=== PATIENT | male | born 1945 | race Caucasian/White ===

== ENCOUNTER → 2019-01-30 | Outpatient (CLI) | payer MEDICARE, SELFPAY | PROVIDERS: PCP Family Medicine; Visit Provider Urology | DX: Z01.812 Encounter for preprocedural laboratory examination (principal); I10 Essential (primary) hypertension | CPT/HCPCS: 36415; 80053; 85025; 85610; 85730; 86850; 86900; 86901; 87077; 87086; 87088; 87186 ==

== ENCOUNTER 2020-01-08 13:01 | Outpatient (CLI) | payer MEDICARE, SELFPAY ==
--- NOTE | ~2020-01-08 | XR_ITS ---
XR chest 2V DATE: 01/08/2020 13:24 INDICATION: Transitional cell carcinoma of left kidney TECHNIQUE: PA and lateral views COMPARISON: None FINDINGS: Cardiomegaly. Aortic calcification and minimal unfolding. No hilar or mediastinal enlargeme nt. No pulmonary infiltrate or consolidation, pleural effusion or pulmonary vascular congestion or pneumo thorax. Diffuse idiopathic skeletal hyperostosis of the thoracic spine. IMPRESSION: Cardiomegaly Aortic atherosclerosis Diffuse idiopathic skeletal hyperostosis of the thoracic spine Reviewed, dictated and finalized at location [facility].
--- NOTE | ~2020-01-08 | CT_ITS ---
EXAMINATION: CT abdomen pelvis wo/w con DATE: 01/08/2020 14:58 INDICATION: Transitional cell carcinoma of left kidney TECHNIQUE: Computed tomography (CT) of the abdomen and pelvis was performed without and subsequently with 130 cc Omnipaque 350 intravenous contrast. Automated exposure control and iterative reconstructi on technique were employed. Exam dose: 3021.89 mGy-cm total exam DLP. COMPARISON: 12/16/2018 CT abdomen pelvis FINDINGS: The lung bases are clear. Extensive coronary artery calcifications. Cardiomegaly. No pericardial or pleural effusion. There are 2 dependent gallstones measuring approximate 4.6 and 5.3 mm. No gallbladder wall thickening or pericholecystic fluid or fat stranding is evident. No hepatic, splenic, pancreatic, adrenal or right renal space-occupying mass lesion is evident. Status post left nephrectomy. There is prostate enlargement. There is diffuse bladder wall thickening, measuring up to approximatel y 5 mm. There are prominent nodular soft tissue projections into the base and lower right lateral asp ect of the urinary bladder, suspicious for prostate and/or bladder malignancy. Cystoscopic correlatio n and biopsy should be considered.. There is an approximately 2.4 x 2.8 x 4.0 cm cystic lesion at the left lateral aspect of the urinary bladder, adjacent to the external iliac vessels medially. This may be a urinary bladder diverticulum, lymphocele or low-attenuation lymphadenopathy. The distal approximately 9 cm of the left ureter ureter remain, but the wall is thickened and enhance d, raising concern for malignant involvement of the distal left ureteral remnant. There is atherosclerotic calcification of the abdominal aorta and at the origins of the celiac and rivas perior mesenteric and renal arteries. No abdominal aortic aneurysm. Normal appendix. No bowel obstruction, bowel wall thickening, pneumatosis or intraperitoneal free air . Status post left inguinal herniorrhaphy. No suspicious osteolytic or osteoblastic lesions are noted. Diffuse idiopathic skeletal hyperostosis of the thoracic and lumbar spine. Prominent degenerative change of the lumbar apophyseal joints. IMPRESSION: Cardiomegaly and coronary artery atherosclerosis Cholelithiasis Status post left nephrectomy There is thickening and enhancement of the wall of the distal left ureteral remnant, raising concern for transitional cell carcinoma Thickening of the urinary bladder wall which may be due to bladder outlet obstruction; transitional c ell carcinoma is not excluded. Cystitis is an additional consideration. Prostate enlargement Dominant nodular soft tissue densities at the base and lower right lateral urinary bladder wall, rais ing concern for prostate and/or bladder malignancy. Cystoscopy and biopsy should be considered. 2.4 x 2.8 x 4.0 cm low-attenuation lesion along the left external iliac olivia chain adjacent to the l ateral aspect of the urinary bladder; diffusion diagnosis includes urinary bladder diverticulum, lymp hocele, low-attenuation lymphadenopathy Reviewed, dictated and finalized at [facility]. Reviewed, dictated and finalized at location [facility]. IMPRESSION: Cardiomegaly and coronary artery atherosclerosis Cholelithiasis Status post left nephrectomy There is thickening and enhancement of the wall of the distal left ureteral rem nant, raising concern for transitional cell carcinoma Thickening of the urinary bladder wall which may be due to bladder outlet obstr uction; transitional cell carcinoma is not excluded. Cystitis is an additional consideration. Prostate enlargement Dominant nodular soft tissue densities at the base and lower right latera
[2020-01-08 14:14] LABS: Estimated Glomerular Filt Rate > 60
== END 2020-01-08 13:02 | disposition home or self-care (01) ==
LOC: ANHIMG 13:08
PROVIDERS: PCP Family Medicine; Visit Provider Urology
DX: C64.2 Malignant neoplasm of left kidney, except renal pelvis (principal); K80.20 Calculus of gallbladder without cholecystitis without obstruction; I51.7 Cardiomegaly; I25.10 Atherosclerotic heart disease of native coronary artery without angina pectoris; N40.0 Benign prostatic hyperplasia without lower urinary tract symptoms
CPT/HCPCS: 71046; 74178; Q9967

== ENCOUNTER 2020-06-14 12:43 | Outpatient (CLI) | payer MEDICARE, SELFPAY ==
--- NOTE | ~2020-06-14 | XR_ITS ---
EXAMINATION: XR abdomen/kub 1V EXAM DATE: 06/14/2020 13:09 INDICATION: Left kidney transitional cell cancer. TECHNIQUE: Frontal projection(s) of the abdomen for interpretation. Comparison is made to prior exami nation from 06/26/2017. FINDINGS: There is moderate amount of colonic stool and gas. No small bowel dilation, nonobstructiv e bowel gas pattern. There are no suspicious calcifications identified. There is no organomegaly suspected. Some large bridging left lateral endplate osteophytes. Patient has diffuse idiopathic ske letal hyperostosis (DISH). Lung bases unremarkable. IMPRESSION: Moderate amount of colonic stool. Reviewed, dictated and finalized at location A.
--- NOTE | ~2020-06-14 | CT_ITS ---
EXAMINATION: CT abdomen pelvis wo/w con DATE: 06/14/2020 13:25 INDICATION: Transitional carcinoma of the kidney. TECHNIQUE: Computed tomography (CT) of the abdomen and pelvis was performed without and with 100 mL O mnipaque-350 intravenous contrast. Automated exposure control and iterative reconstruction technique were employed. The dose-length product was 2180.03 mGy-cm. COMPARISON: 01/08/2020 FINDINGS: Mild bronchiectasis at the bilateral lower lobes right atrial and ventricular enlargement. Atheroscle rotic coronary artery calcifications. No pericardial or pleural effusion. A few calcified gallstones in the dependent aspect of the otherwise normal gallbladder. Liver, spleen, pancreas, right kidney an d right adrenal gland are normal. Postoperative change of prior left nephrectomy and adrenalectomy. 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 Bowels including the appendix. There is diffuse bladder wall thickening with generally smooth mucosal surfac e with the exception of at the base of the bladder overlying the enlarged prostate where it has a mor e nodular appearance. There is diffuse thickened and enhancing urothelium along the remaining mid to distal left ureter. No significant interval change in a 4.1 x 2.6 x 2.9 cm cystic lesion in the left inguinal region where there are a few surgical clips suggesting this could represent either a plug or residual lymphocele secondary to a prior left inguinal hernia repair. There appears be a thin separa ting fat plane between the lesion in the bladder cardiomegaly against a bladder diverticulum. Also ar luis manuel against diverticulum is the absence of contrast within the cystic lesion despite prominent contra st in the bladder on the prior CT study. Couple small fat-containing ventral hernias along a supra um bilical midline abdominal scar. There are bridging osteophytes at multiple levels in the lumbar and l ower thoracic spine along with partial ankylosis with bridging anterior osteophytes at the bilateral sacral iliac joints consistent with diffuse idiopathic skeletal hyperostosis (DISH). Moderate bilater al hip osteoarthritis. IMPRESSION: 1. Status post left nephrectomy. No evident residual, recurrent or metastatic disease. 2. Persistent diffuse enhancing urothelial thickening along the remaining mid to distal left ureter w hich favors inflammation related to reflux as opposed to residual transitional cell carcinoma. 3. Diffuse wall thickening of the bladder with nodular contour at the bladder outlet most likely rela bindu to the enlarged prostate but again residual transitional cell carcinoma could not be excluded. Co uld consider cystoscopy for more definitive determination. 4. Cholelithiasis. 5. Coronary artery disease with right atrial and ventricular enlargement. 6. 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 7. Unchanged 4.1 x 2.6 x 2.9 cm cystic lesion near the entrance of the left inguinal canal with there are surgical clips suggesting either a blood associated with the hernia repair or secondary lymphang ioma. Reviewed, dictated and finalized at location [facility]. IMPRESSION: 1. Status post left nephrectomy. No evident residual, recurrent or metastatic d isease. 2. Persistent diffuse enhancing urothelial thickening along the remaining mid t o distal left ureter which favors inflammation related to reflux as opposed to residual transitional cell carcinoma. 3. Diffuse wall thickening of the bladder with nodular contour at the bladder o utlet most likely related to the enlarged prostate but again residual transitio nal cell carcinoma could not be excluded. Could consider cystoscopy for more de finitive determination. 4. Cholelithiasis. 5. Coronary artery disease with right atrial and
[2020-06-14 13:18] LABS: Estimated Glomerular Filt Rate > 60
== END 2020-06-14 12:44 | disposition home or self-care (01) ==
PROVIDERS: PCP Family Medicine; Visit Provider Urology
DX: C64.2 Malignant neoplasm of left kidney, except renal pelvis (principal); K80.20 Calculus of gallbladder without cholecystitis without obstruction; I25.10 Atherosclerotic heart disease of native coronary artery without angina pectoris; I72.2 Aneurysm of renal artery
CPT/HCPCS: 74018; 74178; Q9967

== ENCOUNTER 2021-11-15 12:44 | Outpatient (CLI) | payer MEDICARE, SELFPAY ==
--- NOTE | 2021-11-15 13:09 | ECG_ITS ---
Measurements Intervals [place] Rate: 60 P: VT: 0 QRS: -11 QRSD: 123 T: 31 QT: 400 QTc: 401 Interpretive Statements ATRIAL FIBRILLATION ABNORMAL ECG Electronically Signed On 11-15-2021 14:17:28 CDT by Jero Hopper M.D.
== END 2021-11-15 12:45 | disposition home or self-care (01) ==
LOC: ANHSURGERY 13:02
PROVIDERS: PCP Family Medicine; Visit Provider Urology
DX: Z01.818 Encounter for other preprocedural examination (principal); D49.4 Neoplasm of unspecified behavior of bladder; I48.91 Unspecified atrial fibrillation; R94.31 Abnormal electrocardiogram [ECG] [EKG]
CPT/HCPCS: 87086; 93005

== ENCOUNTER 2021-11-22 01:08 | Day surgery (SDC) | payer MEDICARE, SELFPAY ==
[2021-11-10 11:21] VITALS: BMI 31.9
--- NOTE | 2021-11-10 11:33 | PC.NURSE ---
PRE-OP INSTRUCTIONS, PLEASE READ CAREFULLY Report to the Outpatient Waiting Room, entrance under the green pavilion located off [facility], at time _1000_ on date _11/22/21_. OR Time: _1200_. - You and your visitor will be asked a series of questions to screen for COVID 19 for your protection. - Only one visitor is allowed at this time. - The patient visitor is requested to leave or wait in car when not with patient. - A mask is required within the hospital. Patients may have clear liquids (water, carbonated beverages, clear teas, apple juice) until 3 hours prior to surgery (0900 AM) with a maximum of 20 ounces. - No food from midnight until time of surgery Take the following medications with a SIP of water the morning of surgery: _AMLODIPINE, METOPROLOL_ Medications to discontinue ___ELIQUIS - PER DR. ANTOINE'S INSTRUCTIONS Please no deodorant, or body powder the day of surgery. No jewelry (including any body piercings) or valuables the day of surgery, leave them at home. Please take a shower or bath the night before, or the morning of, surgery with an antibacterial soap. Wear comfortable, loose fitting clothing. - Jewelry must be removed prior to entering the operating room. Rings and piercings that are not removed may be cut off. - The hospital will not accept responsibility for valuables. - Please leave all valuables, including medications, at home the day of surgery. If you are going home after surgery, a licensed peg driver must drive you home. - NO public transportation without another adult. - We recommend that an adult stay with you for 24 hours following discharge. - We also recommend that you do not drive, make important decision, drink alcoholic beverages, or take any drugs that were not prescribed by your health care provider for at least 24 hours after your discharge time. Follow any additional instructions given to you from your surgeon. If you or anyone in your household have experienced Covid symptoms in the past week, please notify your surgeon or the nurse liaison at the phone number below for possible testing. Telephone instructions given to ___PT and asked if any additional questions and then verbalized understanding. Patient advised to call surgeon office or pre surgery nurse liaison [phone] if any additional questions.
[2021-11-22] VITALS (14 sets, daily range): BP systolic 120–160; BP diastolic 67–90; PULSE 51–100; RESP 10–20; TEMP 35.7–36.6; O2SAT 93–100
--- NOTE | 2021-11-22 12:17 | WPDHPUPDATE1 ---
History and Physical Update Update Date/Time: 11/22/21 12:17 History and Physical has been reviewed, including an updated exam of the patient. There are NO changes in the patient's condition. Risks, benefits, and alternatives have been discussed and questions answered. Patient agrees to proceed with procedure.
--- NOTE | 2021-11-22 12:18 | SUR.PREOP ---
Discussed delay with patient and his . Voiced understanding.
--- NOTE | 2021-11-22 12:34 | WPDANESEPPF ---
Anes - Initial Pre Proc Eval Procedure: Operation Date: 11/22/21 12:00 Proposed Procedures p Cystoscopy, Bladder Biopsy and Fulguration - Bonifacio Cabrera MD Date/Time: 11/22/21 12:34 Surgeon: Bonifacio Cabrera MD Pre Op Diagnosis: bladder cancer Patient Data Age: 76 Gender: M Height: 1.91 m Weight: 111 kg Last Vital Signs Temp 97.9 F 11/22/21 10:24 Pulse 73 11/22/21 10:24 Resp 16 11/22/21 10:24 BP 150/69 H 11/22/21 10:24 Pulse Ox 98 11/22/21 10:24 O2 Del Method Room Air 11/22/21 10:24 Allergies Allergy/AdvReac Type Severity Reaction Status Date / Time metformin AdvReac Mild Diarrhea Verified 11/22/21 10:14 Home Medications Medication Instructions Recorded Confirmed Type amlodipine 10 mg tablet 10 mg PO DAILY 01/30/19 11/22/21 History apixaban 5 mg tablet 5 mg PO BID 01/30/19 11/22/21 History atorvastatin 40 mg tablet 40 mg PO DAILY 01/30/19 11/22/21 History cetirizine 10 mg tablet 10 mg PO DAILY 01/30/19 11/22/21 History metoprolol tartrate 25 mg tablet 25 mg PO BID 01/30/19 11/22/21 History quinapril 40 mg tablet 40 mg PO DAILY 01/30/19 11/22/21 History Patient hx anesthesia problems: none Family hx anesthesia problems: none Results Review: All pre-operative results and documents have been reviewed as part of the pre-operative evaluation. [facility] Past Medical History Medical History Atrial fibrillation cardioversion 2011 & 2016, recurrent AFib rate controlled & anticoagulated. 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 Surgical History Surgical History S/P laparoscopic surgery 06/26/17 robotic assisted distal left ureterectomy with psoas hitch reimplantation Status post cystoscopy with ureteral stent placement TURBT Family History Family History Father Diabetes mellitus Carcinoma of colon Mother Hypertension Other Family history of cardiovascular disease Family history of primary malignant neoplasm of liver Social History Social History Smoking packs per day: 1.5 Smoking cigarettes per day: 30.0 Years smoked: 50 Smoking pack-years: 75.00 Smoking status: Former smoker Tobacco type: cigarettes Second hand tobacco smoke exposure: No Smoking end date: 04/02/72 Alcohol intake: never Substance use: never Substance use type: does not use Living arrangements: with family Gender identity (if verbalized by the patient): Male Spiritual care concerns: No Agree to blood products: No Anes - Eval Final PreProcedure Day of Procedure 11/22/21 12:34 Patient weight: obese Heart: irregular rhythm Lungs: clear to auscultation Airway: Mallampati scale class II Neurological: alert and oriented Last oral intake: >/= 8 hours ASA classification: III Emergent: no Anesthetic plan: proceed Anesthesia type and monitoring: general LMA and standard monitoring Results Review: All pre-operative results and documents have been reviewed as part of the pre-operative evaluation. Informed Consent: The patient's anesthetic plan and its attendant risks and benefits were discussed with the patient/family/POA. Questions were solicited and answers provided to the satisfaction of the patient/family/POA.
[2021-11-22] MEDS: LACTATED RINGERS 1,000 ML 30 ML IV CONT ×2 (12:42→14:02)
[2021-11-22 12:54] LABS: Glucose Point of Care 150 mg/dl (65-105)
[2021-11-22] MEDS: ceFAZolin 2 GM/D5W 50 ML 2 GM/50 ML BAG IVPB (12:55)
[2021-11-22] MEDS: LIDOCAINE HCL 2% GEL UROJET 10 ML PKG 20 ML MUCOUS MEM (13:07)
--- NOTE | 2021-11-22 13:56 | W.PM.PROC2 ---
Procedure Note - Detailed Date of Procedure 11/22/21 Pre-op Diagnosis bladder cancer Post-op Diagnosis Same Procedure Performed Cystoscopy, transurethral resection of prostate/bladder lesion, bladder biopsy with fulguration Surgeon Bonifacio Cabrera MD Anesthesia General Description of Procedure Patient is taken the operative suite correctly identified. Once anesthesia was obtained was placed in dorsal lithotomy position and prepped draped usual sterile fashion. Twenty-two Spanish scope inserted the bladder. He does have some lateral lobe hypertrophy. Upon entering the bladder there is some mild erythema along the left floor area. But also was noted that along the right bladder neck area there is almost a separate entity coming either off the bladder the prostate which is adjacent to and distal to the right ureteral orifice. At this point time was the side that we would resect this area for definitive tissue diagnosis. We exchanged the scope out for a 24 Spanish resectoscope sheath. We did resect the floor of the bladder on the left and sent that as a separate specimen. We fulgurated the base using rollerball. We then resected this abnormal protuberance on the right bladder neck area and sent that as a separate specimen. In order to achieve good hemostasis we needed to resect part of the prostate on the right. It was resected from the bladder neck to the verumontanum. We then used a rollerball to fulgurate for hemostasis. Chips were sent for separate analysis. 2% viscous lidocaine was inserted into the urethra. Twenty-two Spanish [address] was placed connected to continuous bladder irrigation. He is taken recovery stable condition. He will be admitted for CBI. Estimated Blood Loss 22 Drains Yes Packing No Pathology Yes Complications No immediate complications Condition Stable Disposition PACU
[2021-11-22] MEDS: fentaNYL CITRATE INJ (*CRX) 100 MCG/2 ML VIAL 25 MCG IV PUSH ×2 (14:20→14:22)
[2021-11-22 14:24] LABS: Glucose Point of Care 137 mg/dl (65-105)
--- NOTE | 2021-11-22 17:05 | ADMGEN ---
This patient, Donnie Wong, was admitted to Medical Room 256-. Patient/family oriented to hospital policies and general routines including ID bracelet, bed and alarms, visiting hours, pain management, procedures, bathroom and other care routines, personal items, smoking policy, room service/diet, and visiting hours. Information on how to activate the Rapid Response Team has been discussed. Patient/Family are encouraged to report perceived risks to care and to ask questions if they do not understand what they are told or what they should do.
[2021-11-22] MEDS: DOCUSATE SODIUM 100 MG CAPSULE PO (17:17)
[2021-11-22] MEDS: DEXTROSE 5%/LACTATED RINGERS 1,000 ML 125 ML IV CONT (17:17)
[2021-11-22] MEDS: METOPROLOL TARTRATE 25 MG TABLET PO (21:24)
[2021-11-23 01:41] VITALS: BP 149/75; PULSE 57; RESP 18; TEMP 36.5; O2SAT 95
[2021-11-23 05:45] VITALS: BP 138/69; PULSE 64; RESP 18; TEMP 36.4; O2SAT 95
[2021-11-23 05:55] LABS: Hematocrit 39.1 % (42.0-52.0)
[2021-11-23 06:13] LABS: Anion Gap 7 mmol/L (8-16); Blood Urea Nitrogen 13 mg/dL (9-20); Calcium 9.2 mg/dL (8.4-10.2); Carbon Dioxide 31 mmol/L (22-30); Chloride 100 mmol/L (98-107); Estimated CRCL calculation 84 ml/min; Estimated Glomerular Filt Rate > 60; Glucose 127 mg/dL (65-110); Potassium 4.1 mmol/L (3.4-5.0); Sodium 138 mmol/L (137-145)
[2021-11-23 08:01] VITALS: PULSE 64
[2021-11-23] MEDS: METOPROLOL TARTRATE 25 MG TABLET PO (08:01)
[2021-11-23] MEDS: lisinopriL 20 MG TABLET 40 MG PO (08:01)
[2021-11-23] MEDS: ATORVASTATIN 40 MG TABLET PO (08:01)
[2021-11-23] MEDS: DOCUSATE SODIUM 100 MG CAPSULE PO (08:01)
[2021-11-23] MEDS: amLODIPine BESYLATE 5 MG TABLET 10 MG PO (08:01)
[2021-11-23] MEDS: LORATADINE 10 MG TABLET PO (08:02)
[2021-11-23 08:36] LABS: Glucose Point of Care 157 mg/dl (65-105)
[2021-11-23 09:41] VITALS: BP 136/79; PULSE 57; RESP 16; TEMP 36.4; O2SAT 96
[2021-11-23] MEDS: CEPHALEXIN 500 MG CAPSULE PO (12:06)
[2021-11-23 12:08] LABS: Glucose Point of Care 172 mg/dl (65-105)
--- NOTE | 2021-11-23 12:47 | WPDUROPN2 ---
Progress Note: A&P Assessment and Plan (1) History of bladder cancer: Code(s): Z85.51 - Personal history of malignant neoplasm of bladder Status: Acute (2) BPH (benign prostatic hyperplasia): Code(s): N40.0 - Benign prostatic hyperplasia without lower urinary tract symptoms Status: Acute Assessment and Plan: OK to discharge home with richardson catheter. Encourage to drink lots of water. Urine remains light pink/janak off CBI. Subjective Subjective Date/Time Seen: 11/23/21 12:47 Cystoscopy, TURP and bladder biopsy with fulguration. Patient is doing very well he is tolerating his diet, activity and pain well. Urine was clear on CBI this morning, I stopped CBI and rechecked him 4 hours later. Post Op day: 1 Review of Systems Cardiovascular: Cardiovascular: Denies chest pain Respiratory: Respiratory: Reports no additional respiratory complaints Gastrointestinal: Gastrointestinal: Denies abdominal pain, Denies nausea and Denies vomiting Genitourinary: Genitourinary: Denies hematuria, Denies genital pain and Denies flank pain Exam Resp: Effort & Inspection: normal respiratory effort Cardio: Rate: regular rate GI: GI Palp: Yes Soft to palpation and No Tenderness to palpation present (GI) : General: Yes no CVA tenderness Meatus: meatus normal Urinary Catheter: Urinary Catheter: patent and draining and urine pink Extrem: Right lower extremity: no edema Left lower extremity: no edema Objective Data Vital Signs Vital Signs: Vital Signs - 24 hr 11/22/21 14:05 11/22/21 14:20 11/22/21 14:35 Temperature 98 F Pulse Rate 64 55 L 51 L Respiratory Rate 13 10 L 12 Blood Pressure 140/82 151/70 H 153/75 H Pulse Oximetry 100 100 100 Oxygen Delivery Simple Face Mask Simple Face Mask Simple Face Mask Oxygen Flow Rate 8 8 8 11/22/21 14:50 11/22/21 15:05 11/22/21 15:22 Temperature Pulse Rate 57 L 55 L 60 Respiratory Rate 14 12 12 Blood Pressure 154/72 H 160/83 H 149/75 H Pulse Oximetry 98 97 95 Oxygen Delivery Room Air Room Air Room Air Oxygen Flow Rate 11/22/21 15:35 11/22/21 17:49 11/22/21 15:56 Temperature 96.7 F L Pulse Rate 61 76 Respiratory Rate 15 16 Blood Pressure 151/90 H 139/69 Pulse Oximetry 95 93 Oxygen Delivery Room Air Room Air Oxygen Flow Rate 11/22/21 16:11 11/22/21 16:41 11/22/21 17:51 Temperature 96.2 F L 96.4 F L 97.1 F L Pulse Rate 62 81 68 Respiratory Rate 16 16 16 Blood Pressure 141/70 H 139/68 146/67 H Pulse Oximetry 94 96 99 Oxygen Delivery Oxygen Flow Rate 11/22/21 21:24 11/22/21 21:28 11/23/21 01:41 Temperature 97.3 F L 97.7 F Pulse Rate 68 100 57 L Respiratory Rate 20 18 Blood Pressure 120/69 149/75 H Pulse Oximetry 98 95 Oxygen Delivery Oxygen Flow Rate 11/23/21 05:45 11/23/21 08:01 11/23/21 08:00 Temperature 97.6 F Pulse Rate 64 64 Respiratory Rate 18 Blood Pressure 138/69 Pulse Oximetry 95 Oxygen Delivery Room Air Oxygen Flow Rate 11/23/21 09:41 Temperature 97.6 F Pulse Rate 57 L Respiratory Rate 16 Blood Pressure 136/79 Pulse Oximetry 96 Oxygen Delivery Oxygen Flow Rate Intake/Output Intake/Output: Intake & Output 11/20/21 11/21/21 11/22/21 11/23/21 23:59 23:59 23:59 23:59 Intake Total 1550 1840 Output Total 2784 [id number] [facility] -[id number] Meds/Results Medications: Active Medications Generic Name Dose Route Start Last Admin Trade Name Freq PRN Reason Stop Dose Admin Hydrocodone Bitart/Acetaminophen 1 tab 11/22/21 15:56 Hydrocodone/Acetaminophen (*Crx) 5-325 Mg Tablet PO Q4H PRN Pain Rated 1-6 Amlodipine Besylate 10 mg 11/23/21 09:00 11/23/21 08:01 Amlodipine Besylate 5 Mg Tablet PO 10 mg DAILY ROCCO Administration Atorvastatin Calcium 40 mg 11/23/21 09:00 11/23/21 08:01 Atorvastatin 40 Mg Tablet PO 40 mg DAILY ROCCO Administration Cephalexin HCl 500 mg 11/23/21 13:00 11/23/21 12:06 Ce
== END 2021-11-23 13:37 | disposition home or self-care (01) ==
LOC: ANHSURGERY 10:02 → ANH2MED 15:59
PROVIDERS: PCP Family Medicine; Visit Provider Urology
PROC: 0TBB8ZX Excision of Bladder, Via Natural or Artificial Opening Endoscopic, Diagnostic (ICD-10-PCS; CPT 52204; principal; 2021-11-22 12:00)
DX: N40.0 Benign prostatic hyperplasia without lower urinary tract symptoms (principal); Z85.51 Personal history of malignant neoplasm of bladder; Z87.891 Personal history of nicotine dependence; Z79.01 Long term (current) use of anticoagulants; Z83.3 Family history of diabetes mellitus; Z85.528 Personal history of other malignant neoplasm of kidney; Z85.54 Personal history of malignant neoplasm of ureter; L53.9 Erythematous condition, unspecified
CPT/HCPCS: 52500; 52204; 36415; 80048; 82948; 85014; 85018; 88305; A9270; J0690; J2405; J2704; J3010; J7120; J7121

== ENCOUNTER 2023-06-18 15:57 | Emergency (ER) | payer MEDICARE, SELFPAY ==
--- NOTE | 2023-06-18 16:47 | PC.NURSE ---
pt LWBS d/t wait time
== END 2023-06-18 16:47 | disposition left against medical advice (07) ==
LOC: ANHED 16:55
PROVIDERS: PCP Family Medicine
DX: Z53.21 Procedure and treatment not carried out due to patient leaving prior to being seen by health care provider (principal)
CPT/HCPCS: 99199

== ENCOUNTER 2023-07-09 15:41 | Outpatient (CLI) | payer MEDICARE, SELFPAY ==
--- NOTE | ~2023-07-09 | MR_ITS ---
MRI of the brain Clinical History: Other abnormal findings on diagnostic imaging, eye occlusion Technique: Axial and sagittal T1-weighted images were acquired. These were followed by axial T2-weigh bindu, diffusion weighted, gradient, and FLAIR images. Following intravenous administration of 20 cc M ultiHance gadolinium, T1-weighted fat-sat imaging was performed in the axial and coronal planes. Findings: There is no acute infarct, intracranial hemorrhage, or mass lesion. Probable chronic denture laboratory technician ior right temporal infarct present. There are mild chronic microvascular ischemic changes in the adam ventricular white matter bilaterally. Ventricles and subarachnoid spaces are minimally dilated. Orbits are unremarkable. Paranasal sinuses and mastoid air cells are clear. Major intracranial flow voids appear intact. Sagittal midline structures are intact. No abnormal postcontrast enhancement identified. IMPRESSION: No acute infarct, intracranial hemorrhage, or mass lesion. Chronic posterior right temporal lobe infarct. Mild chronic microvascular ischemic changes. Reviewed, dictated and finalized at [facility].
== END 2023-07-09 15:42 | disposition home or self-care (01) ==
PROVIDERS: PCP Family Medicine; Visit Provider Family Medicine
DX: H53.9 Unspecified visual disturbance (principal); R90.89 Other abnormal findings on diagnostic imaging of central nervous system
CPT/HCPCS: 70553; A9577

== ENCOUNTER 2023-08-29 12:03 | Outpatient (CLI) | payer MEDICARE, SELFPAY ==
--- NOTE | ~2023-08-29 | XR_ITS ---
Lumbosacral Spine: AP and lateral views Clinical History: Pain Findings: The normal lordotic curve is maintained. The vertebral bodies and posterior elements are i ntact. There is severe facet arthropathy throughout the lumbar spine. There are extensive bridging an trostomies compatible with extensive DISH. Disc spaces are relatively well-preserved. The sacroiliac joints are normally outlined. Impression: Diffuse, severe facet arthropathy. DISH. Reviewed, dictated and finalized at location M. Impression: Diffuse, severe facet arthropathy. DISH.
== END 2023-08-29 12:04 ==
PROVIDERS: PCP Family Medicine; Visit Provider Family Medicine
DX: M54.30 Sciatica, unspecified side (principal); M48.17 Ankylosing hyperostosis [Forestier], lumbosacral region; M12.88 Other specific arthropathies, not elsewhere classified, other specified site
CPT/HCPCS: 72100

== ENCOUNTER 2023-11-22 12:52 | Outpatient (RCR) | payer MEDICARE, SELFPAY ==
--- NOTE | 2023-11-22 15:30 | OPREHPOC ---
Outpatient Therapy Plan of Care This is a Multidisciplinary Plan of Care that may contain components documented by all disciplines (PT, OT, and ST.) PT Problem 1 PT Problem #1 Knowledge Deficit PT Goal 1 Goal / Goal Update The patient will be independent in a home exercise program. PT Problem 2 PT Problem #2 Pain PT Goal 1 Goal / Goal Update The patient will report no greater than 5/10 low back pain with sit to stand transfers and ambulation of short distances. Target Visit 20 PT Problem 3 PT Problem #3 Impaired Functional Mobil PT Goal 1 Goal / Goal Update 1. The patient will demonstrate 40% or less self perceived disability per the Modified Oswestry Back Index. 2. The patient will demonstrate the ability to ambulate 200 feet with a FWW to improve functional mobility. 3. The patient will demonstrate independence with sit to/from supine and sit to/from stand to improve functional mobility. Target Visit 20 PT Problem 4 PT Problem #4 Impaired Range of Motion PT Goal 1 Goal / Goal Update The patient will demonstrate improved knee extension AROM to lacking 10 degrees or less to improve gait and decrease stress on the right knee . Target Visit 20 PT Goal 1 Goal / Goal Update The patient will improve bilateral knee extension to 4/5 or greater to prevent knee buckling with standing and walking. Target Visit 20
--- NOTE | 2023-11-22 15:30 | PTOPEVAL1 ---
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 He had a x-ray of the knee and it was negative for fractures. He is scheduled to have a MRI on the knee next week. He has been having low back pain in the center of the back that goes down into both legs to the knees. He has had the left leg give out on him several times which is what caused him to injure his knee. He was using a rollator walker until last week he started using a wheelchair for locomotion outside of the house. He is able to walk with his walker inside the home for short distances. He is using a topical analgesic for his right knee and low back pain as well as Tylenol arthritis for pain relief. He notes pain increases when he moves his legs and when he stands. He has been having to take a sponge bath and sleep in a recliner because his full bathroom and bedroom are up stairs and he can not get up and down stairs anymore. He and his are looking into getting a chair lifts installed. Reported Pain Level Pain Score 2: Self Report Assessment PT Clinical Summary Donnie Wong presents with chronic low back pain with an exacerbation aobut 6 months ago leading to difficulty walking and several falls from the left leg giving out. He fell 3 weeks ago onto his right knee sustaining an injury there as well. He has difficulty with standing, walking, and moving his legs. He is no longer able to go up and down stairs and his bedroom and full bathroom are on the second floor of his home so he has been sleeping in a recliner and taking sponge baths. He objectively demonstrates decreased ability to perform sit to stand transfers requiring moderate assist from PT with the gait belt, decreased and painful lumbar and bilateral knee AROM, decreased core and LE strength, decreased standing balance, impaired gait, positive special tests indicating lumbar nerve root irritation, and decreased functional abilities. His knee was not able to be assessed completely due to lack of full knee ROM and pain. He will benefit from skilled PT to address these limitations. Plan of Care Interventions Electrical Stimulation,Hot Pack/Cold Pack,Manual Therapy,Neuro Re-education,Patient/Caregiver Educati,Therapeutic Activities,Therapeutic Exercise PT Services Indicated Yes Treatment Frequency and 3 times a week for 20 visits Duration These treatments will address the objective and functional deficits as defined above. The patient will be advanced safely and appropriately in order for the patient to progress towards his/her prior level of function. Additional exercises will be introduced and as well as a comprehensive home exercise program upon discharge, if needed, ?to ensure carryover of functional gains achieved in the clinic. This treatment plan has been reviewed and agreement upon by the patient.
--- NOTE | 2024-02-19 10:44 | OPREHPOC ---
Outpatient Therapy Plan of Care This is a Multidisciplinary Plan of Care that may contain components documented by all disciplines (PT, OT, and ST.) PT Problem 1 PT Problem #1 Knowledge Deficit PT Goal 1 Goal / Goal Update The patient will be independent in a home exercise program. Progress Not Met PT Problem 2 PT Problem #2 Pain PT Goal 1 Goal / Goal Update The patient will report no greater than 5/10 low back pain with sit to stand transfers and ambulation of short distances. Target Visit 20 Progress Not Met PT Problem 3 PT Problem #3 Impaired Functional Mobil PT Goal 1 Goal / Goal Update 1. The patient will demonstrate 40% or less self perceived disability per the Modified Oswestry Back Index. 2. The patient will demonstrate the ability to ambulate 200 feet with a FWW to improve functional mobility. 3. The patient will demonstrate independence with sit to/from supine and sit to/from stand to improve functional mobility. Target Visit 20 Progress Not Met PT Problem 4 PT Problem #4 Impaired Range of Motion PT Goal 1 Goal / Goal Update The patient will demonstrate improved knee extension AROM to lacking 10 degrees or less to improve gait and decrease stress on the right knee . Target Visit 20 Progress Not Met PT Goal 1 Goal / Goal Update The patient will improve bilateral knee extension to 4/5 or greater to prevent knee buckling with standing and walking. Target Visit 20 Progress Not Met
--- NOTE | 2024-02-19 10:44 | PTOPDC ---
Assessment and note entered by Maryanne Henson, PT Evaluation Information Assessment Status Discharge - Pt Not Presen ICD-10 Condition Codes (PT) Pain in low back M54.50,M25.561 Other ICD-10 Condition Codes ( M54.30, M47.816 PT) Onset 10/31/23 Subjective Information Donnie Wong has not been seen in skilled PT since his initial evaluation on 11/22/23. Assessment PT Clinical Summary Donnie Wong has not been seen in skilled PT since his initial evaluation on 11/22/23. He will be discharged. Plan of Care PT Services Indicated Yes
== END 2023-11-22 14:00 | disposition home or self-care (01) ==
LOC: CHSPT 12:52
PROVIDERS: Visit Provider Physician Assistant Medical
DX: M54.30 Sciatica, unspecified side (principal); M25.561 Pain in right knee; M47.816 Spondylosis without myelopathy or radiculopathy, lumbar region
CPT/HCPCS: 97014; 97110; 97162; G0283

== ENCOUNTER 2023-11-27 12:18 | Outpatient (CLI) | payer MEDICARE, SELFPAY ==
--- NOTE | ~2023-11-27 | MR_ITS ---
MRI of the right knee Clinical history: Instability Technique: Coronal proton density and proton density-weighted images, sagittal proton-density and T2 fat-sat images, and axial proton-density fat-saturated images were acquired. Findings: Anterior and posterior cruciate ligaments are intact. There is probable mild myxoid degener ative change of the ACL. Medial collateral ligament and the lateral collateral ligament complex are i ntact. Popliteus tendon is intact. The medial meniscus is essentially completely absent and macerated. No definite lateral meniscal tear seen. There is an essentially nondisplaced, nearly nondepressed fracture at the posterior aspect of the med ial tibial plateau, best seen on sagittal images, with surrounding extensive marrow edema and oblique fracture line. There is severe osteoarthritis of the patellofemoral compartment, with patchy mild to moderate chondral malacia and moderate osteophyte formation. There is moderate to advanced osteophyt e formation at the medial and lateral joint lines. There is medial compartment narrowing with diffuse grade IV chondromalacia of the medial compartment. There is patchy mild chondromalacia of the latera l compartment. Extensor mechanism is intact. Small joint effusion present. There is diffuse subcutaneous soft tissue edema. No Neff's cyst. There is edematous change of the popliteus muscle belly. Impression: Oblique, nearly nondisplaced/nondepressed fracture at the posterior aspect of the medial tibial plate au, as detailed above. Medial meniscus is essentially completely absent and macerated, compatible diffuse complex tearing. Advanced degenerative change of the medial and patellofemoral compartments, as detailed above. Small joint effusion with diffuse subcutaneous soft tissue edema. Edematous change of the popliteus muscle belly, likely posttraumatic in nature. Reviewed, dictated and finalized at location M. Impression: Oblique, nearly nondisplaced/nondepressed fracture at the posterior aspect of t he medial tibial plateau, as detailed above. Medial meniscus is essentially completely absent and macerated, compatible diff use complex tearing. Advanced degenerative change of the medial and patellofemoral compartments, as detailed above. Small joint effusion with diffuse subcutaneous soft tissue edema. Edematous change of the popliteus muscle belly, likely posttraumatic in nature.
== END 2023-11-27 12:19 | disposition home or self-care (01) ==
PROVIDERS: PCP Family Medicine; Visit Provider Physician Assistant Medical
DX: R29.898 Other symptoms and signs involving the musculoskeletal system (principal); M25.361 Other instability, right knee; S82.234A Nondisplaced oblique fracture of shaft of right tibia, initial encounter for closed fracture; M17.11 Unilateral primary osteoarthritis, right knee; M25.461 Effusion, right knee; X58.XXXA Exposure to other specified factors, initial encounter
CPT/HCPCS: 73721

== ENCOUNTER 2024-02-27 11:03 | Outpatient (CLI) | payer MEDICARE, SELFPAY ==
[2024-02-27 11:32] LABS: Basophils Absolute Auto 0.1 K/mm3 (0.0-0.1); Basophils Percent Auto 0.3 % (0.2-1.2); Eosinophils Absolute Auto 0.1 K/mm3 (0-0.3); Eosinophils Percent Auto 0.7 % (0-4.4); Hematocrit 32.8 % (42.0-52.0); Hemoglobin 10.7 g/dL (14.0-18.0); Immature Granulocyte Absolute 0.08 K/mm3 (0.00-0.031); Immature Granulocyte Percent A 0.6 % (0-0.5); Lymphocytes Absolute Auto 0.85 K/mm3 (0.9-3.2); Lymphocytes Percent Auto 5.9 % (18.3-44.2); Mean Corpuscular HGB Conc 32.6 g/dl (32-36); Mean Corpuscular Hemoglobin 29.9 pg (26-34); Mean Corpuscular Volume 91.6 fl (80-100); Mean Platelet Volume 10.9 fl (7.4-10.4); Monocytes Absolute Auto 1.1 K/mm3 (0.1-0.6); Monocytes Percent Auto 7.5 % (2.6-8.5); Neutrophils Absolute Auto 12.2 K/mm3 (1.3-6.7); Platelet Count Result 214 k/mm3 (150-375); Red Blood Count 3.58 M/mm3 (4.6-6.20); Red Cell Distribution Width 14.1 % (11.5-14.5); White Blood Count 14.4 K/mm3 (4.5-10.0)
[2024-02-27 11:44] LABS: Alanine Aminotransferase 13 U/L (6-50); Albumin Level 3.5 g/dL (3.5-5.1); Alkaline Phosphatase 99 U/L (38-126); Anion Gap 7 mmol/L (4-12); Aspartate Amino Transferase 17 U/L (17-59); Bilirubin,Total 1.8 mg/dL (0.2-1.3); Blood Urea Nitrogen 23 mg/dL (9-20); Calcium 8.9 mg/dL (8.4-10.2); Carbon Dioxide 29 mmol/L (22-30); Chloride 100 mmol/L (98-107); Estimated Glomerular Filt Rate 54; Glucose 143 mg/dL (65-110); Potassium 4.2 mmol/L (3.4-5.0); Sodium 136 mmol/L (137-145)
[2024-02-27 12:09] LABS: Add Urine Microscopic? YES; Appearance Urine Cloudy (Clear); Bacteria Urine None Seen /hpf; Bilirubin Urine Negative (Negative); Blood Urine 2+ (Negative); Color Urine Yellow (Yellow); Glucose Urine UA Negative (Negative); Ketones Urine Negative (Negative); Leukocyte Esterase Ur 3+ LEU/UL (Negative); Nitrate Urine Negative (Negative); Non Pathogenic Casts 0-2; Protein Urine 1+ mg/dL (Negative); Specific Grav Ur 1.011 (1.001-1.035); Squamous Epithelial Cell Urine None Seen /hpf (Few); WBC Urine >100 /hpf (0-3)
== END 2024-02-27 11:04 | disposition home or self-care (01) ==
PROVIDERS: PCP Family Medicine; Visit Provider Student in an Organized Health Care Education/Training Program
DX: R10.819 Abdominal tenderness, unspecified site (principal); R50.9 Fever, unspecified; R82.90 Unspecified abnormal findings in urine
CPT/HCPCS: 36415; 80053; 81001; 85025; 87077; 87086; 87186

== ENCOUNTER 2025-02-20 12:56 | Outpatient (CLI) | payer MEDICARE, SELFPAY ==
--- OUTSIDE RECORDS SUMMARY | 2025-02-20 13:05 | XMS_ITS | Clinical Summary ---
Author Organization [facility] Address [address] [place] [id number] Care Team Providers Care Per Diem Clerk Name Role Phone Popeye Perez MD Primary Care Provider [phone] Allergies No known active allergies Medications atorvastatin (LIPITOR) 40 MG tablet Take 1 tablet (40 mg total) by mouth nightly at bedtime. Active amLODIPine (NORVASC) 10 MG tablet Take 1 tablet (10 mg total) by mouth daily. Active metoprolol tartrate (LOPRESSOR) 25 MG tablet Take by mouth 2 (two) times daily. Active apixaban (ELIQUIS) 5 MG tablet Take 1 tablet (5 mg total) by mouth 2 (two) times daily. Active cetirizine (ZYRTEC) 10 MG tablet Take 1 tablet (10 mg total) by mouth daily. Active losartan (COZAAR) 100 MG tablet Take 1 tablet (100 mg total) by mouth daily. Active NON FORMULARY PT IS TAKING A DIURETIC but cannot recall the name Active glimepiride (AMARYL) 1 MG tablet Take 1 tablet (1 mg total) by mouth every morning before breakfast. 09/24/2023 Active Social History Tobacco Use Types Packs/Day Years Used Date Smoking Tobacco: Former Cigarettes Q uit: 1973 Smokeless Tobacco: Never Tobacco Cessation:Counseling Given: Not Answered Alcohol Use Standard Drinks/Week Comments Not Currently 0 (1 standard drink = 0.6 oz pur e alcohol) quite 2004 Sex and Gender Information Value Date Recorded Sex Assigned at Not on file Legal Sex Male 6:47 PM CDT Gender Identity Not on file Sexual Orientation Not on file Last Filed Vital Signs Vital Sign Reading Time Taken Comments Blood Pressure 120/55 01/25/2024 7:00 PM CDT Pulse 84 01/25/2024 5:30 PM CDT Temperature 37.1 C (98.8 F) 01/25/2024 3:00 PM CDT Respiratory Rate 16 01/25/2024 3:00 PM CDT Oxygen Saturation 100% 01/25/2024 7:00 PM CDT Inhaled Oxygen Concentration - - Weight 113.4 kg (250 lb) 01/25/2024 3:00 PM CDT Height 190.5 cm (6' 3) 01/25/2024 3:00 PM CDT Body Mass Index 31.25 01/25/2024 3:00 PM CDT Plan of Treatment Health Maintenance Due Date Last Done Comments Hepatitis C 1964 DTaP, Tdap and Td Vaccines (1 - Tdap) 1965 Zoster Vaccines (1 of 2) 1996 Annual Medicare Wellness Visit 2011 RSV Immunization or 60+ Years (1 - 1-dose 75+ series) 2021 COVID-19 Vaccine ( season) 2024 02/14/2023, 01/20/2022, 03/02/2021, Additional history exists Influenza Adult (#1) 2024 02/06/2020 Pneumococcal Vaccine: 50+ Years Completed 01/13/2022, 02/06/2020 Hepatitis A Vaccines Aged Out No long er eligible based on patient's age to complete this topic Meningococcal B Vaccine Aged Out No l onger eligible based on patient's age to complete this topic Meningococcal Vaccine Aged Out No kareem aayush eligible based on patient's age to complete this topic RSV Immunizations Under 20 Months Aged Out No longer eligible based on patient's age to complete this topic Insurance MEDICARE [facility] Care Teams Per Diem Clerk Relationship Specialty Start Date End Date Popeye Perez MD [address] [facility] [address] [place] [address] PCP - General FAMILY PRACTICE 06/18/23
--- OUTSIDE RECORDS SUMMARY | 2025-02-20 13:05 | XMS_ITS | Clinical Summary ---
Author Organization [facility] [place] [address] Address [address] [place] [address] Care Team Providers Care Edge Runner Name Role Phone Popeye Perez MD Primary Care Provider Allergies No known active allergies Medications cetirizine 10 mg capsule Take by mouth daily Active metFORMIN XR (GLUCOPHAGE XR) 500 mg 24 hr tablet 12/28/19 21 Active empagliflozin (JARDIANCE) 10 mg tablet Take 1 tablet (10 mg total) by mouth daily 90 tablet 3 02/16/20 22 Active Additional Information Patient not taking.Reported on 09/17/2024 glimepiride (AMARYL) 1 mg tablet TAKE 1 TABLET BY MOUTH IN THE MORNING WITH BREAKFAST 12/22/19 23 Active amLODIPine (NORVASC) 10 mg tablet Take 1 tablet by mouth once daily 90 tablet 06/19/19 25 Active furosemide (LASIX) 40 mg tablet Take 1 tablet (40 mg total) by mouth 2 (two) times a day 09/17/19 25 Active carvediloL (COREG) 12.5 mg tablet Take 1 tablet (12.5 mg total) by mouth 2 (two) times a day with meals 60 tablet 11 09/18/19 25 026 Active apixaban (Eliquis) 5 mg tablet Take 1 tablet by mouth twice daily 180 tablet 2 12/16/19 25 Active atorvastatin (LIPITOR) 40 mg tablet Take 1 tablet by mouth once daily 90 tablet 2 12/20/19 25 Active losartan (COZAAR) 100 mg tablet Take 1 tablet by mouth once daily 90 tablet 2 02/03/20 25 Active losartan (COZAAR) 100 mg tablet Take 1 tablet by mouth once daily 90 tablet 09/18/19 25 025 Discontinued Active Problems Problem Noted Date Diagnosed Date Atrial fibrillation 02/13/2014 Overview (07/07/2016): Atrial fibrillation Surgical History Surgery Date Site/Laterality Comments OTHER SURGICAL HISTORY Arrhythmias Afib s/p DCCV 12/08/2011: Medical History Medical History Date Comments Hx Other Medical Arrhythmias Emperatriz b s/p DCCV 12/08/2011 Hypertension Hypertension Hx Other Medical Dyslipidemia 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 Family History Medical History Relation Name Comments Diabetes type II Father 2 Diabetes Ty pe II; Heart failure Father 2 Congestive Hea rt Failure; Coronary artery disease Mother 2 Jyotsna nary Artery Disease; Relation Name Status Comments Father 1 Alive Father 2 Mother 1 Alive Mother 2 Social History Tobacco Use Types Packs/Day Years Used Date Smoking Tobacco: Former Smokeless Tobacco: Never Tobacco Cessation:Counseling Given: Not Answered Alcohol Use Standard Drinks/Week Comments Yes 0 (1 standard drink = 0.6 oz pur e alcohol) Sex and Gender Information Value Date Recorded Sex Assigned at Not on file 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[employer] Gender Identity Not on file Sexual Orientation Not on file Last Filed Vital Signs Vital Sign Reading Time Taken Comments Blood Pressure 138/74 09/17/2024 9:09 AM CDT Pulse 85 09/17/2024 9:09 AM CDT Temperature - - Respiratory Rate 12 10/04/2016 1:11 PM CDT Oxygen Saturation 97% 09/17/2024 9:09 AM CDT Inhaled Oxygen Concentration - - Weight 108.9 kg (240 lb) 09/17/2024 9:09 AM CDT Height 190.5 cm (6' 3) 09/17/2024 9:09 AM CDT Body Mass Index 30 09/17/2024 9:09 AM CDT Plan of Treatment Health Maintenance Due Date Last Done Comments Depression Screening 1946 Fall Risk Assessment 1945 Hepatitis C Screening 1945 DTaP/Tdap/Td Vaccine (1 - Tdap) 1957 Hepatitis B Screening 1964 Zoster Vaccine (1 of 2) 1996 Abdominal Aortic Aneurysm (AAA) Screen 2011 Well Visit 65+ 2011 Pneumococcal vaccine 65+ (2 of 2 - PCV) 02/05/2021 1 04/07/2019 Covid-19 Vaccine (3 - 2024- season) 2024, 06/16/2020 Influenza Vaccine (#1) 2024 01/19/2021, 2019 Insurance MEDICARE [facility] MEDICARE [facility] MEDICARE Care Teams Edge Runner Relationship Specialty Start Date End Date Popeye Perez MD [address] [facility] [address] [place] [address] PCP - General Family Medicine 04/11/17
--- OUTSIDE RECORDS SUMMARY | 2025-02-20 13:05 | XMS_ITS | Encounter Summary ---
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 Gender Identity Not on file Sexual Orientation Not on file documented as of this encounter Plan of Treatment Not on file documented as of this encounter Procedures Procedure Name Priority Date/Time Associated Diagnosis Comments PATH CONSULT ON REFERRED CASE Routine 10/06/2021 11:46 AM CDT Illness, unspecified documented in this encounter Results * PATH CONSULT ON REFERRED CASE (10/06/2021 11:46 AM CDT) Final Diagnosis URINE/VOIDED ([facility]; [id number]; 10/06/2021): - Atypical urothelial cells 11/03/2021 12:46 PM CDT [facility] Amendment electronically signed by Perry Kahn MD on 11/03/2021 at 1246 CDT at 1601 CDT Microscopic Description and Comment Microscopic examination substantiates the final diagnosis. 11/03/2021 12:46 PM CDT [facility] Clinical History URETERAL CANCER, LEFT 11/03/2021 12:46 PM CDT [facility] Materials Received One thin prep slide received from [facility] [id number]. All material will be returned. 11/03/2021 12:46 PM CDT [facility] Disclaimer The performance characteristics of all immunohistochemical and indirect immunofluorescence stains (if any) cited in this report were determined by the [facility]. Some of these tests were developed by our own laboratory and have not been cleared or approved by the US Food and Drug Administration. The FDA does not require this test to go through premarket FDA review. These tests are used for clinical purposes. They should not be regarded as investigational or for research. This laboratory is certified under the Clinical Laboratory Improvement Amendments (CLIA) as qualified to perform high complexity clinical laboratory testing. This case has been personally reviewed and interpreted by the attending (teaching) pathologist. 11/03/2021 12:46 PM CDT [facility] Amended Report Changed URINE/ to URINE/VOIDED 11/03/2021 12:46 PM CDT [facility] Case Report Surgical Pathology Report Case: [id number] Authorizing Provider: Renetta Damon MD Collected: 10/06/2021 11:46 AM Ordering Location: [facility] Received: 10/10/2021 11:46 AM Pathologist: Perry Kahn MD Specimen: Slide Consultation 11/03/2021 12:46 PM CDT [facility] Embedded Images 11/03/2021 12:46 PM CDT [facility] Pathology/Cytolo gy SURGICAL PATHOLOGY CONSULTATION AND REPORT ON REFERRED SLIDES PREPARED ELSEWHERE / Unknown 10/06/2021 11:46 AM CDT 10/10/2021 11:46 AM CDT us Renetta Damon MD LAB - PATHOLOGY/CYTOLOGY ORDERAB LES Edited Result - Final [facility] [address] [place] [address], [facility] [phone] documented in this encounter Visit Diagnoses Diagnosis Illness, unspecified documented in this encounter Care Teams Certified Welder Relationship Specialty Start Date End Date Popeye Perez MD [address] [place] [address] PCP - General 04/12/17 documented as of this encounter
--- OUTSIDE RECORDS SUMMARY | 2025-02-20 13:05 | XMS_ITS | Clinical Summary ---
Author Organization [facility] Address [address] [place] [address] Care Team Providers Care International Representative Name Role Phone Popeye Perez MD Primary Care Provider [phone] Source Comments [facility],non-owned Affiliates and Associated Physician Practices is amultiple site organization consisting of ambulatory clinics and hospital sitesin [place], [place], [place] and [place]. This disclosure is being madepursuant to the Care Everywhere program and may not contain all information available regarding this patient. 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 Gender Identity Not on file Sexual Orientation Not on file Plan of Treatment Health Maintenance Due Date Last Done Comments HEPATITIS C SCREENING 04/01/1964 DTAP/TDAP/TD VACCINES (1 - Tdap) 1965 PNEUMOCOCCAL VACCINE 50+ (1 of 1 - PCV) 1996 ZOSTER VACCINE (1 of 2) 1996 Respiratory Syncytial Virus (RSV) Vaccine Pt: or over 60 yrs (1 - 1-dose 75+ series) 2021 DEPRESSION SCREENING 04/02/2024 COVID-19 VACCINE ( - 2024-2 6 season) 2024 INFLUENZA VACCINE (#1) 2024 HEPATITIS B VACCINE Aged Out No longe r eligible based on patient's age to complete this topic HIB VACCINE Aged Out No longer eligi ble based on patient's age to complete this topic HPV VACCINE Aged Out No longer eligi ble based on patient's age to complete this topic MENINGOCOCCAL (Group B) VACC INE SHARED DECISION-MAKING Aged Out No longer eligibl e based on patient's age to complete this topic MENINGOCOCCAL GROUPS A/C/Y/W VACCINE Aged Out No longer eligible b ased on patient's age to complete this topic Insurance MEDICARE Care Teams International Representative Relationship Specialty Start Date End Date Popeye Perez MD [address] [place] [address] PCP - General 04/12/17
--- NOTE | 2025-02-20 13:08 | ECG_ITS ---
Test Date: 2025-02-20 13:32:50 Measurements Intervals [place] Rate: 64 P: 0 TN: 0 QRS: -8 QRSD: 100 T: 31 QT: 405 QTc: 418 Interpretive Statements ATRIAL FIBRILLATION LOW QRS VOLTAGE IN PRECORDIAL LEADS [QRS DEFLECTION < 1.0 mV IN CHEST LEADS] POSSIBLE ANTERIOR MYOCARDIAL INFARCTION [30 ms Q WAVE IN V3/V4, OR R < 0.2 mV IN V4], PROBABLY OLD ABNORMAL RHYTHM ECG No previous ECG available for comparison Electronically Signed On 02-20-2025 19:06:21 SUPERVISOR WINTER by Sukumar Allison M.D.
[2025-02-20 13:54] LABS: Anion Gap 5 mmol/L (4-12); Blood Urea Nitrogen 33 mg/dL (9-20); Calcium 9.1 mg/dL (8.4-10.2); Carbon Dioxide 30 mmol/L (22-30); Chloride 100 mmol/L (98-107); Estimated Glomerular Filt Rate > 60; Glucose 237 mg/dL (65-110); Potassium 4.5 mmol/L (3.4-5.0); Sodium 135 mmol/L (137-145)
== END 2025-02-20 12:57 | disposition home or self-care (01) ==
PROVIDERS: Anesthesiology; PCP Family Medicine; Visit Provider Urology
DX: E11.9 Type 2 diabetes mellitus without complications (principal); I10 Essential (primary) hypertension; I48.91 Unspecified atrial fibrillation
CPT/HCPCS: 36415; 80048; 93005

== ENCOUNTER 2025-03-10 02:14 | Day surgery (SDC) | payer MEDICARE, SELFPAY ==
[2025-02-20 11:11] VITALS: BMI 31.4
--- NOTE | 2025-02-20 11:39 | PC.NURSE ---
[facility] has started construction of its new state of the art ER which will open Spring 2026. With this, we anticipate parking may be a challenge for some our surgical patients and families. Parking spaces are limited but are available for all Surgical, obstetrics, and ER patients sharing this lot. If you arrive and find you are having a hard time finding a parking space, please note that we understand the challenges, please drive around the hospital and park near Hospital Entrance 1. When you enter this entrance, you can ask a volunteer to direct or take you back to the surgical waiting area to check in. We appreciate everyone?s understanding of these expected challenges while we build for your future. Report to the Outpatient Waiting Room, entrance under the green pavilion located off [address], at time ___8:30AM___ on date ___03/10/25__. Planned Procedure Time: __10:30AM .? Time changes happen often and if your time is changed the preop area will call you the afternoon before. - You and your visitor will be asked to self-screen and do not enter if you have any COVID symptoms. Please call surgeon if you need to reschedule. - A mask is optional within the hospital at this time. Patients may have clear liquids (water, carbonated beverages, clear teas, apple juice) until 3 hours prior to surgery (7:30AM) with a maximum of 20 ounces. - No food from midnight until time of surgery and no smoking, or chewing tobacco (or any form of nicotine). No chewing gum, candy or mints. Take only the following medications with a SIP of water on the morning of surgery: ___AMLODIPINE, CARVEDILOL DO NOT STOP ANY OF YOUR OTHER PRESCRIPTION MEDICATIONS PRIOR TO SURGERY EXCEPT THE FOLLOWING Hold all vitamins and supplements for 3 days per anesthesiologist. Medications to discontinue per physician ___HOLD ELIQUIS 2 DAYS PRE-OP PER DR TOWNSEND PER PATIENT__ Date to take last dose 03/07/25 Please no make-up, nail sami, hairspray, perfume, deodorant, or body powder the day of surgery.? No jewelry (including any body piercings) or valuables the day of surgery, leave them at home.? Please take a shower or bath the night before, or the morning of, surgery with an antibacterial soap.? Wear comfortable, loose fitting clothing.? - Jewelry must be removed prior to entering the operating room.? Rings and piercings that are not removed may be cut off. - The hospital will not accept responsibility for valuables.? - Please leave all valuables, including medications, at home the day of surgery. If you are going home after surgery, a licensed nascar driver must drive you home.? - NO public transportation without another adult if you receive anesthesia. - We recommend that an adult stay with you for 24 hours following discharge. - We also recommend that you do not drive, make important decision, drink alcoholic beverages, or take any drugs that were not prescribed by your health care provider for at least 24 hours after your discharge time. Follow any additional instructions given to you from your surgeon. Telephone instructions given to PATIENT and asked if any additional questions and then verbalized understanding. Patient advised to call surgeon office or pre surgery nurse liaison [phone] if any additional questions.
[2025-03-10] VITALS (12 sets, daily range): BP systolic 124–178; BP diastolic 41–107; PULSE 65–79; RESP 12–20; TEMP 36.3–37; O2SAT 96–100; BMI 31.1
--- OUTSIDE RECORDS SUMMARY | 2025-03-10 02:16 | XMS_ITS | Clinical Summary ---
Author Organization [facility] [address] Address [address] [place] [address] Care Team Providers Care Final Inspection Supervisor Name Role Phone Popeye Perez MD Primary Care Provider Allergies No known active allergies Medications cetirizine 10 mg capsule Take by mouth daily Active metFORMIN XR (GLUCOPHAGE XR) 500 mg 24 hr tablet 1 Active empagliflozin (JARDIANCE) 10 mg tablet Take 1 tablet (10 mg total) by mouth daily 90 tablet 3 2 Active Additional Information Patient not taking.Reported on 09/17/2024 glimepiride (AMARYL) 1 mg tablet TAKE 1 TABLET BY MOUTH IN THE MORNING WITH BREAKFAST 3 Active amLODIPine (NORVASC) 10 mg tablet Take 1 tablet by mouth once daily 90 tablet 5 Active furosemide (LASIX) 40 mg tablet Take 1 tablet (40 mg total) by mouth 2 (two) times a day 5 Active carvediloL (COREG) 12.5 mg tablet Take 1 tablet (12.5 mg total) by mouth 2 (two) times a day with meals 60 tablet 11 5 09/18/19 26 Active apixaban (Eliquis) 5 mg tablet Take 1 tablet by mouth twice daily 180 tablet 2 5 Active atorvastatin (LIPITOR) 40 mg tablet Take 1 tablet by mouth once daily 90 tablet 2 5 Active losartan (COZAAR) 100 mg tablet Take 1 tablet by mouth once daily 90 tablet 2 5 Active Active Problems Problem Noted Date Diagnosed Date [...] on file 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 Gender Identity Not on file Sexual Orientation [...] Vaccine (#1) 2024 01/19/2021, 2019 Insurance MEDICARE [facility] Member Subscriber Plan / Payer (Ef fective 2016-Present) Name:Donnie Wong Relation to Subscriber:Self Name:Donnie Wong Payer ID:[id number] Group ID:[id number] N Type:COMMERCIAL Address: [employer] [address] [place] [id number] MEDICARE [facility] Member Subscriber Plan / Payer (Ef fective 2016-Present) Name:Donnie Wong Relation to Subscriber:Self Name:Donnie Wong Payer ID:[id number] Group ID:[id number] N Type:Grata Address: [facility] [employer] [address] [place] [address] MEDICARE Care Teams Final Inspection Supervisor Relationship Specialty Start Date End Date Popeye Perez MD [address] [facility] [address] [place] [address] PCP - General Family Medicine 04/11/17
--- OUTSIDE RECORDS SUMMARY | 2025-03-10 02:16 | XMS_ITS | Encounter Summary ---
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 All material will be returned. 11/03/2021 12:46 PM CDT [facility] Disclaimer The performance characteristics of all immunohistochemical and indirect immunofluorescence stains (if any) cited in this report were determined by the Histopathology Laboratory of [facility]. Some of these tests were developed by [...] LAB Case Report Surgical Pathology Report Case: [id number] Authorizing Provider: Renetta Damon MD Collected: 10/06/2021 11:46 AM Ordering Location: [facility] Received: 10/10/2021 11:46 AM Pathologist: Perry Kahn MD Specimen: Slide Consultation 11/03/2021 12:46 PM CDT [facility] Embedded Images 11/03/2021 12:46 PM CDT [facility] Pathology/Cytolo gy SURGICAL PATHOLOGY CONSULTATION AND REPORT ON REFERRED SLIDES PREPARED ELSEWHERE / Unknown 10/06/2021 11:46 AM CDT 10/10/2021 11:46 AM CDT us Renetta Damon MD LAB - PATHOLOGY/CYTOLOGY ORDERAB LES Edited Result - Final [facility] [address] [facility] [place] [address], [facility] [phone] documented in this encounter Visit Diagnoses Diagnosis Illness, unspecified documented in this encounter Care Teams Undercoater Relationship Specialty Start Date End Date Popeye Perez MD [address] [place] [address] PCP - General 04/12/17 documented as of this encounter
--- OUTSIDE RECORDS SUMMARY | 2025-03-10 02:16 | XMS_ITS | Clinical Summary ---
Author Organization [facility] Address [address] [place] [address] Care Team Providers Care Rotary Dryer Operator Name Role Phone Popeye Perez MD Primary Care Provider [phone] Source Comments [facility],non-owned Affiliates and Associated Physician Practices is amultiple site organization consisting of ambulatory clinics and hospital sitesin [place], [place], [place] and [place]. This disclosure is being madepursuant to the Care Everywhere program and may not contain all information available regarding this patient. 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
--- OUTSIDE RECORDS SUMMARY | 2025-03-10 02:16 | XMS_ITS | Clinical Summary ---
Author Organization [facility] Address [address] [place] [address] Care Team Providers Care Ssis Architect Name Role Phone Popeye Perez MD Primary Care Provider Allergies No known active allergies Medications atorvastatin [...] age to complete this topic Insurance MEDICARE [facility] Care Teams Ssis Architect Relationship Specialty Start Date End Date Popeye Perez MD [address] [place] [address] PCP - General FAMILY PRACTICE 06/18/23
[2025-03-10] MEDS: LACTATED RINGERS 1,000 ML 30 ML IV CONT ×2 (09:20→11:18)
--- NOTE | 2025-03-10 09:44 | WPDANESEPPF ---
Anes - Initial Pre Proc Eval Procedure: Operation Date: 03/10/25 10:30 Proposed Procedures p Cystoscopy, Transurethral Resection of Bladder Tumor, Duran Catheter Placement with Intravesical Instillation of Gemcitabine - Donnie Muhammad MD Date/Time: 03/10/25 09:44 Surgeon: Donnie Muhammad MD Pre Op Diagnosis: bladder cancer Patient Data Age: 79 Gender: M Height: 1.91 m Weight: 114 kg Allergies Allergy/AdvReac Type Severity Reaction Status Date / Time metformin AdvReac Mild Diarrhea Verified 03/10/25 09:07 Home Medications ?Medication ?Instructions ?Recorded ?Confirmed ?Type apixaban 5 mg tablet 5 mg PO BID 01/30/19 03/10/25 History atorvastatin 40 mg tablet 40 mg PO DAILY 01/30/19 02/20/25 History cetirizine 10 mg tablet 10 mg PO DAILY 01/30/19 02/20/25 History amlodipine 10 mg tablet 5 mg PO DAILY 12/19/23 03/10/25 History losartan 100 mg tablet 100 mg PO DAILY 12/24/23 02/20/25 History glimepiride 1 mg tablet 1 mg PO QAM #90 tabs 06/24/24 02/20/25 Rx carvedilol 12.5 mg tablet 12.5 mg PO Q12H 10/06/24 03/10/25 History furosemide 40 mg tablet 40 mg PO QAM #90 tabs 12/15/24 02/20/25 Rx potassium chloride 10 mEq 10 meq PO DAILY #90 tabs 12/15/24 02/20/25 Rx tablet,extended release Laboratory Tests 03/10/25 09:02 POC Capillary Glucose 153 H mg/dl (65-105) Patient hx anesthesia problems: none Family hx anesthesia problems: none Results Review: All pre-operative results and documents have been reviewed as part of the pre-operative evaluation. 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 Transitional cell carcinoma Bladder tumor s/p TURBT Hypertension Hyperlipidemia Coagulopathy chronic eliquis therapy d/t h/o AFib Atrial fibrillation cardioversion 2012 & 2016, recurrent AFib rate controlled & anticoagulated. Carpal tunnel syndrome Surgical History Surgical History (Updated 03/10/25 @ 08:32 by Mane Sumner DO) Hx of CABG History of nephrectomy, left Status post cystoscopy with ureteral stent placement TURBT S/P laparoscopic surgery 06/26/17 robotic assisted distal left ureterectomy with psoas hitch reimplantation Family History Family History Father Diabetes mellitus Carcinoma of colon Mother Hypertension Unknown Heart disease Diabetes mellitus Kidney disorder High cholesterol Other Family history of cardiovascular disease Family history of primary malignant neoplasm of liver Social History Social History (Updated 10/28/24 @ 15:36 by Frances Moise) Social History: Caffeine-daily Smoking packs per day: 1 Smoking cigarettes per day: 20.0 Years smoked: 15 Smoking pack-years: 15.00 Smoking status: Former smoker Tobacco type: cigarettes Second hand tobacco smoke exposure: No Smoking end date: 09/30/69 Alcohol intake: current Alcohol use details: rarely Substance use: never Substance use type: does not use Lack of Transportation: No Lack of Food: Never True Current Housing: I Have Housing Concerned About Future Housing: No Difficulty Paying Gas/Electric Bills: No Difficulty Paying for Meds: No Currently Unemployed: YES Education: Don't Know Difficulty w/ Childcare or Family Care: No Living arrangements: with family Additional living arrangements comments: Occupation/Education: retired Gender identity (if verbalized by the patient): Male Sexual Orientation (if Verbalized by the Patient): Straight or Heterosexual Spiritual care concerns: No Agree to blood products: No Anes - Eval Final PreProcedure Day of Procedure 03/10/25 09:44 Patient weight: obese Heart: regular rate and rhythm Lungs: clear to auscultation Airway: Mallampati scale class II Neurological: alert and oriented Last oral intake: >/= 8 hours ASA classification: III Emergent: no Anesthetic plan: proceed Anesthesia type and monitoring: general LMA and standard monitoring Results Review: All pre-operative results and documents have been reviewed as part of the pre-operative evaluation. Informed Consent: The patient's anesthetic plan and its attendant risks and benefits were discussed with the patient/family/POA. Questions were solicited and answers provided to the satisfaction of the patient/family/POA.
--- NOTE | 2025-03-10 09:51 | WPDHPUPDATE1 ---
History and Physical Update Update Date/Time: 03/10/25 09:51 History and Physical has been reviewed, including an updated exam of the patient. There are NO changes in the patient's condition. Risks, benefits, and alternatives have been discussed and questions answered. Patient agrees to proceed with procedure.
--- NOTE | 2025-03-10 09:53 | PM.HPGS ---
History of Present Illness History of Present Illness Consent: Risks, benefits, and alternatives have been discussed and questions answered. Patient agrees to proceed with procedure. Chief complaint: bladder cancer Narrative: Donnie Wong is a 79 year old male with history of AFib on Eliquis (currently held ), diabetes, lower extremity edema, HTN, HLD who presents today for endoscopic management of recurrent bladder cancer. He has a fairly complex urologic history including high-grade bladder cancer (diagnosed in 2014 with recurrence in 2017), as well as left upper tract urothelial carcinoma. He has undergone left distal ureterectomy in 2018 as well as left nephrectomy and proximal ureterectomy in 2019. His most recent surgeyr for bladder resection showed benign tissue in 2021. He recently had office surveillance cystoscopy which demonstrated a 2-3 cm papillary tumor at the 2 o'clock position just past the bladder neck. Patient denies any changes past his baseline and is ready for the procedure today. Review of Systems Review of Systems: Constitutional: No fevers or chills Eyes: No changes in vision HENT: No hearing loss Cardiovascular: No chest pain or palpitations Respiratory: No shortness of breath, cough, wheezing GI: No abdominal pain, nausea, or vomiting : No dysuria or difficulty urinating Heme: No easy bruising or bleeding Skin: No rash or itching MSK: No myalgias or joint pain Psych: No hallucinations Neuro: No lateralized numbness or tingling PMFSH Past Medical History Medical History (Updated 03/10/25 @ 09:57 by Donnie Muhammad MD) Bilateral lower extremity edema Retinal artery occlusion Shortness of breath History of anesthesia complications Diabetes mellitus with hyperglycemia 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 Transitional cell carcinoma Bladder tumor s/p TURBT Hypertension Hyperlipidemia Coagulopathy chronic eliquis therapy d/t h/o AFib Atrial fibrillation cardioversion 2012 & 2016, recurrent AFib rate controlled & anticoagulated. Carpal tunnel syndrome Surgical History Surgical History (Updated 03/10/25 @ 08:32 by Mane Sumner DO) Hx of CABG History of nephrectomy, left Status post cystoscopy with ureteral stent placement TURBT S/P laparoscopic surgery 06/26/17 robotic assisted distal left ureterectomy with psoas hitch reimplantation Family History Family History Father Diabetes mellitus Carcinoma of colon Mother Hypertension Unknown Heart disease Diabetes mellitus Kidney disorder High cholesterol Other Family history of cardiovascular disease Family history of primary malignant neoplasm of liver Social History Social History (Updated 10/28/24 @ 15:36 by Frances Moise) Social History: Caffeine-daily Smoking packs per day: 1 Smoking cigarettes per day: 20.0 Years smoked: 15 Smoking pack-years: 15.00 Smoking status: Former smoker Tobacco type: cigarettes Second hand tobacco smoke exposure: No Smoking end date: 09/30/69 Alcohol intake: current Alcohol use details: rarely Substance use: never Substance use type: does not use Lack of Transportation: No Lack of Food: Never True Current Housing: I Have Housing Concerned About Future Housing: No Difficulty Paying Gas/Electric Bills: No Difficulty Paying for Meds: No Currently Unemployed: YES Education: Don't Know Difficulty w/ Childcare or Family Care: No Living arrangements: with family Additional living arrangements comments: Occupation/Education: retired Gender identity (if verbalized by the patient): Male Sexual Orientation (if Verbalized by the Patient): Straight or Heterosexual Spiritual care concerns: No Agree to blood products: No Meds Home Medications and Allergies Home Medications ?Medication ?Instructions ?Recorded ?Confirmed ?Type apixaban 5 mg tablet 5 mg PO BID 01/30/19 03/10/25 History atorvastatin 40 mg tablet 40 mg PO DAILY 01/30/19 02/20/25 History cetirizine 10 mg tablet 10 mg PO DAILY 01/30/19 02/20/25 History amlodipine 10 mg tablet 5 mg PO DAILY 12/19/23 03/10/25 History losartan 100 mg tablet 100 mg PO DAILY 12/24/23 02/20/25 History glimepiride 1 mg tablet 1 mg PO QAM #90 tabs 06/24/24 02/20/25 Rx carvedilol 12.5 mg tablet 12.5 mg PO Q12H 10/06/24 03/10/25 History furosemide 40 mg tablet 40 mg PO QAM #90 tabs 12/15/24 02/20/25 Rx potassium chloride 10 mEq 10 meq PO DAILY #90 tabs 12/15/24 02/20/25 Rx tablet,extended release Allergies Allergy/AdvReac Type Severity Reaction Status Date / Time metformin AdvReac Mild Diarrhea Verified 03/10/25 09:07 Exam Narrative: General: Alert, no acute distress Head: Normocephalic, atraumatic Eyes: Extraocular movements intact Neck: No JVD, trachea midline Respiratory: Symmetric chest rise, nonlabored breathing on room air CV: Normal rate, adequate peripheral perfusion Abdomen: Soft, nontender, nondistended Skin: Warm/dry Extremities: Moves all 4, no cyanosis Neuro: No focal deficits Psych: Answers questions appropriately, appropriate mood Assessment and Plan Assessment and plan (1) Bladder cancer: Code(s): C67.9 - Malignant neoplasm of bladder, unspecified Status: Acute Assessment and Plan: 79yM with history of bladder cancer who was found to have recurrent tumor on recent office surveillance cystoscopy - To OR for cystoscopy, transurethral resection of bladder tumor, Duran catheter placement with intravesical instillation of gemcitabine - Risks, benefits, alternatives reviewed with the patient. He is amenable to proceed. - Anticipate discharge home thereafter
[2025-03-10] MEDS: ceFAZolin 2 GM in SODIUM CHLORIDE 0.9% IV 50 ML 100 ML IVPB (10:06)
--- NOTE | 2025-03-10 10:34 | S_PTH ---
PATIENT: Donnie Wong LOC: [facility] U#:[id number] AGE/SX: 79/M ROOM: RE03/10/[address]: Donnie Muhammad MD : 1945 BED: DIS: 03/10/2025 SPEC #: [id number] RECD: 03/10/25 11:25 STATUS: DEVIN REQ #: [id number] DAVID: 03/10/25 10:[address]: Donnie Muhammad DEPT: [facility] Surgical RECD BY: Lali Johnson MLT, ([facility]) ENTERED: 03/10/25 11:25 SP TYPE: Surgical OTHR DR: Popeye Perez MD Tissues: A - Bladder Neck B - Bladder Neck Procedures: Hematoxylin and Eosin Stain Gross and Microscopic Level 4
[2025-03-10] MEDS: SODIUM CHLORIDE 0.9% IV 23.7 ML, GEMCITABINE HCL 1,000 MG BLADDER ×2 (11:05)
--- NOTE | 2025-03-10 11:08 | P.OP_ITS ---
Procedure Note - Detailed Date of Procedure 03/10/25 Pre-op Diagnosis bladder cancer Post-op Diagnosis Same Procedure Performed 1. Cystoscopy 2. Urethral calibration and dilation 3. Transurethral resection of bladder tumor (medium, 3 cm) 4. Transurethral resection of prostate 5. Complex Duran catheter placement 6. Intravesical instillation of gemcitabine Surgeon Donnie Muhammad MD Anesthesia General Findings 1. Cystourethroscopy revealed no urethral stricture. The prostatic urethra demonstrated evidence of prior TURP. His left ureteral orifice was surgically absent. Right ureteral orifice in orthotopic position. There were scattered grade 2 trabeculations and small cellules throughout the urinary bladder. There was an approximately 3 cm papillary tumor extending from the 2 o'clock to 5 o'clock position at the junction of the bladder neck and prostatic urethra 2. Successful transurethral resection of the aforementioned bladder tumor. Two specimens were sent including superficial as well as deep resections 3. Adequate hemostasis at the conclusion of the case 4. Successful placement of 18 [place] coude catheter with instillation of 2 g of gemcitabine mixed in 100 mL of sterile saline which was instilled at 11:05 a.m. Description of Procedure After informed consent was obtained, the patient was brought back to the operating theatre and placed in the supine position on the operating table. Pre- operative antibiotics were confirmed to have been administered. Anesthesia was induced. The patient was moved into the dorsal lithotomy position and prepped and draped in the standard sterile fashion for an endoscopic case. All pressure points were padded. Bilateral sequential compression devices were on and noted to be functioning. A formal timeout was performed with Dr. Muhammad in attendance to confirm the correct patient, site/laterality, and procedure and all were in agreement to proceed. To begin with, I sequentially calibrated and dilated the patient's distal most urethra in 2 [place] increments from 20 [place] to 30 [place] in order to accommodate the resectoscope at a later stage of the case. Next, I atraumatically advanced a lubricated 22-[place]an rigid cystoscope transurethrally into the patient's bladder. Pancystoscopy was performed with findings as noted above. I then removed the cystoscope and inserted the continuous-flow resectoscope transurethrally into the patient's bladder. The obturator was removed and I advanced the working Benitez element through the sheath and turned my attention to the left bladder neck where there was an approximately 3 cm papillary bladder tumor extending from the 2:00 a.m. to the 3 o'clock position at the junction of the bladder neck and prostatic urethra. I took superficial resections of this tumor which were sent off as a specimen for pathologic analysis. I then took deep resections of the tumor and these were sent off as a separate specimen for pathologic analysis. Please note that the bladder tumor resection involved both the bladder as well as prostatic tissue. I then turned my attention to hemostasis. Using the cautery setting I cauterized the resection bed. I then cycled the patient's bladder multiple times and confirmed adequate hemostasis. Next, I left the patient's bladder partially full and removed the resectoscope. I then inserted an 18 [place] coude catheter transurethrally into the patient's bladder and instilled 10 mL sterile water in the Duran catheter balloon. The balloon was seated at the bladder neck and his catheter was connected to a gravity drainage bag. The patient was then awoken from anesthesia and taken to the recovery in stable condition. He tolerated the procedure well and there were no immediate complications noted. At the conclusion of the case all sponge, instrument, and sharp counts were correct x 2. Per hospital protocol, in the recovery room I instilled 2 g of gemcitabine mixed in 100 mL of sterile saline at 11:05 a.m. He will keep the gemcitabine in his bladder for 1 hour and then his catheter will be drained and we will ensure the patient is able to void spontaneously prior to hospital discharge. Disposition: Patient will be monitored in the PACU and discharged home after clearing PACU protocol. He will follow-up in the Urology Clinic in the near future to review his pathology report and discuss next steps accordingly. The patient's was provided with an update following the surgery all questions were answered to her satisfaction at the conclusion of our discussion. Estimated Blood Loss 10
== END 2025-03-10 13:40 | disposition home or self-care (01) ==
PROVIDERS: PCP Family Medicine; Visit Provider Urology
PROC: 0TBB8ZZ Excision of Bladder, Via Natural or Artificial Opening Endoscopic (ICD-10-PCS; CPT 52235; principal; 2025-03-10 10:30)
DX: C67.8 Malignant neoplasm of overlapping sites of bladder (principal); N32.89 Other specified disorders of bladder; E78.5 Hyperlipidemia, unspecified; I10 Essential (primary) hypertension; E11.65 Type 2 diabetes mellitus with hyperglycemia; I48.91 Unspecified atrial fibrillation; E66.9 Obesity, unspecified; Z68.31 Body mass index [BMI] 31.0-31.9, adult; Z79.01 Long term (current) use of anticoagulants; Z79.84 Long term (current) use of oral hypoglycemic drugs; Z98.890 Other specified postprocedural states; Z90.5 Acquired absence of kidney; Z95.1 Presence of aortocoronary bypass graft; Z96.0 Presence of urogenital implants; Z87.891 Personal history of nicotine dependence; Z85.54 Personal history of malignant neoplasm of ureter; Z80.0 Family history of malignant neoplasm of digestive organs; Z82.49 Family history of ischemic heart disease and other diseases of the circulatory system
CPT/HCPCS: 52235; 51720; 82948; 88305; J0690; J2003; J2405; J2704; J3010; J7120; J9201